=== PATIENT | female | born 1960 | race Caucasian/White ===

== ENCOUNTER → 2018-02-18 | Outpatient (CLI) | payer OTHER ==
[~2018-02-18] MED LIST: Z.0.ADDERALL 30 MG30 PO; Z.0.AMBIEN10 MG PO; Z.0.CYMBALTA60 MG PO; Z.0.TRAZODONE HCL100 PO
--- NOTE | 2018-02-18 17:36 | Diagnostic Imaging Report ---
EXAMINATION: Right shoulder series. CLINICAL HISTORY: Right shoulder pain., History of rotator cuff tear COMPARISON: Right shoulder MRI 10/03/2007. Discussion: The osseous structures are intact without evidence of acute, displaced fracture or dislocation. Well-circumscribed 1.5 cm lucent lesion in the proximal humeral diaphysis, with thin sclerotic border, no cortical disruption or mass effect. No sclerotic lesions. Clopton screws are noted in the right humeral head. No AC separation. Mild degenerative changes in the glenohumeral joint. The soft tissues are unremarkable. IMPRESSION: 1. No acute abnormalities. 2. Clopton screws in the right humeral head, likely from prior rotator cuff repair. 3. Mild degenerative changes in the glenohumeral joint. 4. 1.5 cm lucent lesion in the proximal humeral diaphysis has a nonaggressive appearance, and may represent a bone cyst. Signed by: Dr. Emilio Bullard M.D. on 02/18/2018 5:33 PM
== END ==
LOC: RAD 16:28
PROVIDERS: ATTEND Internal Medicine
DX: M25.511 Pain in right shoulder (principal)

== ENCOUNTER 2018-11-15 09:44 | Observation (INO) | payer BC, OTHER ==
[~2018-11-15] VITALS: Ht 160 cm; Wt 91.3 kg
[2018-11-15] MEDS ORDERED: ASPIRIN 81 MG CHEW TAB PO ONE (10:15)
[2018-11-15 10:25] LABS: BASOPHILS % 0.4 % (0.0-1.0); EOSINOPHILS # (AUTO) 0.3 (0.0-0.4); EOSINOPHILS % 4.6 % (0.0-6.0); HEMOGLOBIN 13.9 g/dL (12.0-16.0); LYMPHOCYTES % 44.2 % (18.0-39.1); MEAN CORPUSCULAR HEMOGLOBIN 27.4 pg (28-32); MEAN CORPUSCULAR HGB CONC 31.6 g/dL (31-35); MEAN CORPUSCULAR VOLUME 86.8 fL (81-99); MONOCYTES # (AUTO) 0.4 (0.2-0.8); MONOCYTES % 5.9 % (4.4-11.3); NEUTROPHILS % 44.3 % (38.7-80.0); PLATELET COUNT 315 x10e3/uL (140-360); RED BLOOD COUNT 5.07 x10e6/uL (3.6-5.1); RED CELL DISTRIBUTION WIDTH 13.4 % (11.7-14.4)
[2018-11-15 10:41] LABS: INR 0.92; PROTHROMBIN TIME 12.8 seconds (11.9-14.5)
[2018-11-15 10:50] LABS: ALBUMIN 3.1 g/dL (3.5-5.0); ALBUMIN/GLOBULIN RATIO 0.9 (0.8-2.0); ANION GAP 12.6 mmol/L (8-16); CALCIUM 9.3 mg/dL (8.4-10.2); CREATININE, SERUM 1.06 mg/dL (0.57-1.11); POTASSIUM 3.6 mmol/L (3.5-5.1)
[2018-11-15 10:56] LABS: CREATINE KINASE MB 1.4 ng/mL (0-5.0)
[2018-11-15 11:13] LABS: BILIRUBIN,URINE NEGATIVE (NEGATIVE); CLARITY,URINE CLEAR (CLEAR); COLOR,URINE YELLOW (YELLOW); KETONES,URINE NEGATIVE (NEGATIVE); NITRITE,URINE NEGATIVE (NEGATIVE); PROTEIN,URINE DIPSTICK NEGATIVE (NEGATIVE); URINE UROBILINOGEN 0.2 mg/dL (0.2 - 1)
[2018-11-15 11:17] LABS: LEUKOCYTE ESTERASE ,URINE 1+ (NEGATIVE)
[2018-11-15 11:33] LABS: BACTERIA,URINE MANY /HPF; EPITHELIAL CELLS,URINE MANY /LPF; RBC,URINE 0-5 /HPF (0-5); WBC,URINE (MAN) >50 /HPF (0-5)
[2018-11-15 11:39] LABS: PARTIAL THROMBOPLASTIN TIME 31.3 seconds (23.8-35.5)
--- NOTE | 2018-11-15 12:45 | NUR ---
PT APPROACHES NURSES STATION ASKING HOW MUCH LONGER BEFORE THE DR CAN SEE HIS (THE PT) NURSE EXPLAINED TO THAT DR IS WORKING CODES THROUGHOUT THE HOSP AND THAT HIS IS CURRENTLY STABLE WITH STABLE VITALS AND LABS; STATES HIS HAS BEEN WAITING AND HE DOESN'T UNDERSTAND WHY A DR HASN'T SEEN HIS AND NURSE AGAIN EXPLAINS TO THAT DR IS WORKING CODES TRYING TO SAVE LIVES AND IT IS NECESSARY TO PRIORITIZE PT'S IN ORDER OF ACUITY WANTS A TIMEFRAME FOR WHEN THE DR WILL SEE HIS AND NURSE EXPLAINS THAT THE DR WILL BE AVAILABLE WHEN HE IS DONE WORKING THE CODE PT BECOMES IRATE AND STATES THAT HE MAY WANT TO CHECK OUT CHARGE NURSE IS NOTIFIED THAT PT MAY WANT TO SIGN OUT AMA AND GOES TO SPEAK TO PT AND ; AGAIN RESTATES HE DOESN'T UNDERSTAND WHY THE DR CAN'T JUST SEE HIS AND CHARGE NURSE EXPLAINS THE DR IS WORKING A CODE WHICH TAKES PRIORITY; PT STATES SHE WANTS TO SEE THE DR AND THAT HER PCP TOLD HER TO COME TO ER FOR FLUIDS SO SHE DOESN'T UNDERSTAND WHY NURSES CAN'T JUST GIVE HER FLUIDS CHARGE NURSE EXPLAINS THAT NURSES DO NOT HAVE PRESCRIPTION AUTHORITY AND MUST WAIT ON DR TO SEE PT AND PUT IN ORDERS AND THAT THE DR IS WORKING A CODE; CONTINUES TO BE ADAMANT THAT A DR SHOULD SEE HIS NOW NURSE EXPLAINS THE SITUATION AGAIN AND ASKS IF THEY ARE WILLING TO WAIT ON DR AND THAT THERE IS NO TIMEFRAME FOR WHEN HE WILL BE AVAILABLE PT STATES SHE WILL WAIT FOR DR IS IRATE AND AGITATED; SECURITY WAS STANDING BY; AT 1259 AT PT BEDSIDE
[2018-11-15] MEDS ORDERED: SODIUM CHLORIDE 0.9% 1000ML 1,000 ML IV SCH (13:15)
[2018-11-15] MEDS: DIAZEPAM 5 MG TAB PO SCH (13:19)
[2018-11-15] MEDS ORDERED: SODIUM CHLORIDE 0.9% 1000ML 1,000 ML ONE (13:21)
--- NOTE | 2018-11-15 13:45 | Diagnostic Imaging Report ---
EXAMINATION: Head CT HISTORY: Dizziness, headache for the last few days COMPARISON: None available TECHNIQUE: Multidetector axial images were obtained without contrast from the foramen magnum to the vertex . The images were reconstructed using brain and bone algorithms. Thin section brain images were reformatted into coronal and sagittal planes. Image quality: Motion/streaking artifact limits the evaluation of the skull base and posterior cranial fossa. Dose modulation, iterative reconstruction, and/or weight based adjustment of the mA/kV was utilized to reduce the radiation dose to as low as reasonably achievable. FINDINGS: Parenchyma: 1. A few scattered matter hypodensities, most likely nonspecific mild chronic microvascular ischemic changes. Otherwise there are no areas of abnormal density in the brain parenchyma. 2. No mass or hemorrhage. No CT evidence of acute territorial vascular insult. Extra-axial spaces:No abnormal density. No extra-axial fluid collections Brain volume: Normal for age. Ventricles: No hydrocephalus or displacement. Arteries: No density suggestive of thrombus. Dural sinuses: No abnormal density. Extra-axial spaces: No abnormal density. Foramen magnum: No mass, Chiari malformation, or basilar invagination. Sella: No obvious mass. Paranasal/mastoid sinuses: Imaged portions unremarkable. Skull/Scalp: No lytic or blastic lesions. No fractures. IMPRESSION: No acute intracranial abnormalities. Minimal likely age-related nonspecific white matter chronic microvascular changes. Signed by: Dr. Luzma Velásquez M.D. on 11/15/2018 1:42 PM
[2018-11-15] MEDS ORDERED: CEFTRIAXONE SOD 1 GM/NS 50 ML 50 ML IV ONE (14:00)
[2018-11-15] MEDS ORDERED: MECLIZINE HCL 12.5 MG TAB PO ONE (14:30)
[2018-11-15] MEDS ORDERED: SODIUM CHLORIDE 0.9% 500ML 500 ML IV ONE (14:30)
[2018-11-15] MEDS ORDERED: METOCLOPRAMIDE HCL 10 MG/2ML VIAL IV ONE (15:00)
[2018-11-15] MEDS ORDERED: DIPHENHYDRAMINE HCL INJ 50 MG/ML VIAL IV ONE (15:00)
--- NOTE | 2018-11-15 15:13 | NUR ---
pt resting comfortably in bed not in distress at this time makes no complaints at this time
[2018-11-15] MEDS ORDERED: ONDANSETRON HCL INJ 2MG/ML 2ML 2 MG/ML VIAL IV PRN (17:15)
--- NOTE | 2018-11-15 18:00 | NUR ---
Recvd patient from ER, Assisted her to bed, unsteady walking, not in any distress or SOB, c/o pain on left arm. call light in reach, bed alarm ON, new orders recvd from Dr Schmitt for pain
[2018-11-15 18:09] VITALS: BP 121/67
[2018-11-15] MEDS ORDERED: HYDROCODONE/APAP 10MG-325MG TAB PO PRN (18:45)
[2018-11-15 18:47] VITALS: BP 121/67
[2018-11-15 20:00] VITALS: BP 103/54
[2018-11-15] MEDS: ZOLPIDEM TARTRATE 10 MG TAB PO PRN (21:06)
[2018-11-15] MEDS: MECLIZINE HCL 12.5 MG TAB PO SCH (21:06)
[2018-11-15] MEDS: HYDROCODONE/APAP 10MG-325MG TAB PO PRN (21:28)
[2018-11-15] MEDS: SODIUM CHLORIDE 0.9% 1000ML 1,000 ML IV SCH (21:32)
[2018-11-16] VITALS (7 sets, daily range): BP systolic 95–114; BP diastolic 53–69
--- NOTE | 2018-11-16 01:00 | NUR ---
received report for continuity of care. patient resting, no s/s of distress observed. will continue to monitor patient. bed locked and in lowest position,call light within easy reach.
[2018-11-16] MEDS: SODIUM CHLORIDE 0.9% 1000ML 1,000 ML IV SCH ×4 (01:08→21:30)
[2018-11-16] MEDS: MECLIZINE HCL 12.5 MG TAB PO SCH ×3 (05:56→21:30)
[2018-11-16] MEDS: CEFTRIAXONE SOD 1 GM/NS 50 ML 50 ML IV SCH (08:20)
[2018-11-16] MEDS: DULOXETINE HCL 30 MG DELAYED RELEASE PO SCH (08:22)
--- NOTE | 2018-11-16 08:38 | History and Physical ---
REASON FOR ADMISSION: Vertigo. HISTORY OF PRESENT ILLNESS: The patient is a 58-year-old lady, who had a 2-day acute onset of vertigo appeared to be a ouuv-eo-fauls sensation, has been so severe that the patient has not been able to eat or drink very well. Found to have an increased risk of falls, then brought to the emergency room and still unsteady. Thus, she has been admitted for further evaluation. PAST MEDICAL HISTORY: Anxiety, recent fall, recent left wrist fracture. MEDICATIONS: See MAR. ALLERGIES: CODEINE. SOCIAL HISTORY: Lives at home with her . Nonsmoker, nondrinker. FAMILY HISTORY: Hypertension, diabetes. PHYSICAL EXAMINATION: VITAL SIGNS: Temperature 96.7, pulse 58, blood pressure 114/67, and sats 97% on room air. GENERAL: No apparent distress. NECK: Supple. No lymphadenopathy. HEENT: Pupils equal, round, and reactive to light and accommodation, but there is noted nystagmus to the right. CARDIOVASCULAR: Regular rate and rhythm. ABDOMEN: Good bowel sounds. Soft, nontender. LUNGS: Clear to auscultation. EXTREMITIES: No clubbing or cyanosis. NEUROLOGIC: Moves all extremities x4. ASSESSMENT AND PLAN: 1. Severe benign positional vertigo. We will continue with current care since she is feeling little bit better. 2. Dehydration. Continue with IV fluids. 3. Anxiety disorder. Continue with home medication. 4. Urinary tract infection. Continue with antibiotics until culture data is available. Please see hospital chart for full details. MD TEJA Jenkins/STEVEN /[id number]
[2018-11-16] MEDS: HYDROCODONE/APAP 10MG-325MG TAB PO PRN ×2 (08:50→18:19)
[2018-11-16] MEDS ORDERED: METHYLPREDNISOLONE SOD SUCC 40 MG/ML VIAL 1ML IV ONE (09:30)
--- NOTE | 2018-11-16 19:04 | NUR ---
received report from day nurse. patient is resting comfortably in bed. bed is in lowest position and call bartholomew is within reach. will continue to monitor patient's care.
[2018-11-16] MEDS: ZOLPIDEM TARTRATE 10 MG TAB PO PRN (22:24)
[2018-11-17] VITALS: BP 101/61
[2018-11-17 04:00] VITALS: BP 117/61
[2018-11-17] MEDS: MECLIZINE HCL 12.5 MG TAB PO SCH (05:38)
[2018-11-17] MEDS: SODIUM CHLORIDE 0.9% 1000ML 1,000 ML IV SCH (05:38)
[2018-11-17] MEDS ORDERED: METHYLPREDNISOLONE SOD SUCC 40 MG/ML VIAL 1ML IV ONE (07:00)
--- NOTE | 2018-11-17 07:00 | NUR ---
report given to day nurse. patient is resting in bed. bed is in lowest position and call bartholomew is within reach.
[2018-11-17 07:40] VITALS: BP 127/69
--- NOTE | 2018-11-17 08:15 | NUR ---
RN RECEIVED REPORT FROM NIGHT NURSE. PT LYING IN BED COMFORTABLY, STATES SHE IS FEELING 100% BETTER THAN WHEN SHE WAS ADMITTED. STATES SHE IS AWAITING HER "INJECTION AND ANOTHER ROUND OF ANTIBIOTICS", FOR THE DR TO DISCHARGE HER. PT HAS NO COMPLAINTS OF PAIN. BED IN LOWEST POSITION, ROOM FREE OF CLUTTER, BED IN LOWEST POSITION AND CALL LIGHT WITHIN REACH. PT'S IV IS PATENT, AND NS IS FLOWING AT 125 ML/HR. PT SHOWS NO S/S OF DISTRESS
[2018-11-17] MEDS: CEFTRIAXONE SOD 1 GM/NS 50 ML 50 ML IV SCH (08:52)
[2018-11-17] MEDS: DULOXETINE HCL 30 MG DELAYED RELEASE PO SCH (08:53)
[2018-11-17] MEDS: DIAZEPAM 5 MG TAB PO SCH (08:53)
[2018-11-17 09:50] VITALS: BP 127/69
--- NOTE | 2018-11-17 10:27 | NUR ---
DR. DIETRICH PAGED: REGARDING POSSIBLE Rx AND DISCHARGE FOR THE PT
--- NOTE | 2018-11-17 11:00 | NUR ---
PT NOTIFIED OF DISCHARGE ORDER. PIV DISCONTINUED, DISCHARGE INFORMATION SIGNED, PT EDUCATED ON FALL PREVENTION AND URINARY TRACT INFECTION(WOMEN). PT IS ASYMPTOMATIC AND DENIES PAIN, DIZZINESS OR ANY DISCOMFORT. PT IS CALLING HER TO COME PICK HER UP
[2018-11-17 11:23] VITALS: BP 134/61
--- NOTE | 2018-11-18 05:37 | Discharge Summary ---
DISCHARGE DIAGNOSES: 1. Benign positional vertigo. 2. Dehydration. HISTORY OF PRESENT ILLNESS: The patient is a 58-year-old lady who presented with acute onset of two days prior with vertigo that was so severe that she was having difficulty ambulating as well as decreasing p.o. intake in due to nausea and vomiting, so she was brought and placed on IV fluids for dehydration as well as meclizine and some Solu-Medrol where she had significant improvement on the following day. Thus, she was able to ambulate well and eat well without any issues and at her insistence, she wanted to be discharged home as she was feeling much better, so she was discharged home and told to follow up with me in 1-2 weeks. Please see hospital chart for full details. MD TEJA Jenkins/STEVEN /[id number]
== END 2018-11-17 11:10 | disposition home or self-care (01) ==
LOC: ER 09:44 → ERHOLD 17:05 → IMCU 17:54
PROVIDERS: ADMIT Internal Medicine; ATTEND Internal Medicine
DX: H81.10 Benign paroxysmal vertigo, unspecified ear (principal); F41.9 Anxiety disorder, unspecified; F32.9 Major depressive disorder, single episode, unspecified; N30.00 Acute cystitis without hematuria; Z98.890 Other specified postprocedural states; E86.0 Dehydration; R11.2 Nausea with vomiting, unspecified
CPT/HCPCS: 36415; 70450; 80053; 81001; 82550; 82553; 84484; 85025; 85610; 85730; 87086; 93005; 99284; G0378 ×3; J0696 ×3; J1200; J2765; J2920 ×2; J7030 ×3; J7040; J8597 ×3

== ENCOUNTER → 2019-03-26 | Day surgery (SDC) | payer BC ==
[~2019-03-26] MED LIST changes: +ACYCLOVIR200 MG PO; +DICYCLOMINE HCL10 MG PO; +ESTRADIOL1 MG PO; +EVOXAC30 MG PO; +FENTANYL CITRATE/PF 100MCG/2 ML INJ ONE; +HYOSCYAMINE 0.125 MG TAB ONE; +MELOXICAM7.5 MG PO; +MIDAZOLAM HCL 2 MG/2 ML VIAL ONE; +PANTOPRAZOLE SO40 MG PO; +PHENTERMINE H37.5 MG PO; +PROPOFOL IV EMULSION 10 MG/ML 50 ML VIAL ONE; +TYLENOL WITH C1 EACH PO
--- OUTSIDE RECORDS SUMMARY | 2019-03-26 10:55 | XMS REPORT ---
Author Author [facility] Address Unknown Phone Unavailable Care Team Providers Care Vp Mobile Products Name Role Phone Osmin MONTENEGRO Unavailable Unavailable FRANCISCO J DIETRICH Unavailable Unavailable Payers Payer Name Policy Type Policy Number Effective Date Expiration Date Problems This patient has no known problems. Allergies, Adverse Reactions, Alerts Allergy Name Allergy Type Status Severity Reaction(s) Onset Date Inactive Date Treating Clinician Comments codeine DA Active MO 2018-10-16 00:00:00 codeine DA Active MO 2015-01-24 00:00:00 Medications This patient has no known medications. Results Test Description Test Time Test Comments Text Results Atomic Results Result Comments CT BRAIN WO 2018-11-15 13:31:00 [place] [address] Patient Name: LUZ MARIA MUJICA MR #: [id number] : 1960 Age/Sex: 58/F Req #: [id number] Adm Physician: Ordered by: LIZ SUBRAMANIAN INBOUND SALES REPRESENTATIVE Report #: [id number] Location: ER Room/Bed: Procedure: [id number] CT/CT BRAIN WO Exam Date: 11/15/18 Exam Time: 1300 REPORT STATUS: Signed EXAMINATION: Head CT HISTORY: Dizziness, headache for t he last few days COMPARISON: None available TECHNIQUE: Multidetector axial images were obtained without contrast from the foramen magnum to the vertex . The images were reconstructed using brain and bone algorithms. Thin section brain images were reformatted into coronal and sagittal planes. Image quality: Motion/streaking artifact limits the evaluation of the skull base and posterior cranial fossa. Dose modulation, iterative reconstruction, and/or weight based adjustment of the mA/kV was utilized to reduce the radiation dose to as low as reasonably achievable. FINDINGS: Parenchyma: 1. A few scattered matter hypodensities, most likely nonspecific mild chronic microvascular ischemic changes. Otherwise there are no areas of abnormal density in the brain parenchyma. 2. No mass or hemorrhage. No CT evidence of acute territorial vascular insult. Extra-axial spaces:No abnormal density. No extra-axial fluid collections Brain volume: Normal for age. Ventricles: No hydrocephalus or displacement. Arteries: No density suggestive of thrombus. Dural sinuses: No abnormal density. Extra-axial spaces: No abnormal density. Foramen magnum: No mass, Chiari malformation, or basilar invagination. Sella: No obvious mass. Paranasal/mastoid sinuses: Imaged portions unremarkable. Skull/Scalp: No lytic or blastic lesions. No fractures. IMPRESSION: No acute intracranial abnormalities. Minimal likely age- related nonspecific white matter chronic microvascular changes. Signed by: Dr. Ai Velásquez M.D. on 11/15/2018 1:42 PM Dictated By: AI VELÁSQUEZ MD 1342 Transcribed By: GAY on 11/15/18 1342 COPY TO: LIZ SUBRAMANIAN NP - XR WRIST 3 + V LT 2018-10-09 13:05:00 FAX: Nani Rivera NP [phone] [place]: St: [facility] FAX: Francisco J Pepper MD [phone] Name: LUZ MARIA MUJICA [facility] Noe Meneses : 1960 Age/S: 58/F [address] [place] [address] Unit #: [id number] Loc: [place] [address] Phys: Nani Rivera NP Acct: [id number] Dis Date: Status: REG ER PHONE #: [phone] Exam Date: 10/09/2018 1256 FAX #: [phone] Reason: post reduction EXAMS: CPT CODE: [id number] XR WRIST 3 + V LT 00097 Left wrist 3 views 10/09/2018 1235 hours HISTORY: Post reduction Comparison is made to 10/09/2018 1050 hours FINDINGS: Interval cast placement is noted. There is improved anatomic alignment of the distal left radial and ulnar fractures from prior study with decreased volar angulation of the fracture fragments. IMPRESSION: Improved anatomic alignment of distal left radial and ulnar fractures. SL: [id number] at 1300 Reported and signed by: Nitish Garner M.D. CC: Nani Rivera NP; Francisco J Dietrich MD Technologist: RT Citlaly(Freddy) Trnscrd Date/Time/By: 10/09/2018 (8603) : By: [email or web address] Orig Print D/T: S: 10/09/2018 (4847) PAGE 1 Signed Report - XR HAND 3 + V LT 2018-10-09 11:06:00 FAX: Herbert Belcher MD [phone] [place]: St: REG FAX: Nani Rivera NP [phone] Name: LUZ MARIA MUJICA : 1960 Age/S: 58/F [address] [place] [address] Unit #: [id number] Loc: [place] [address] Phys: Nani Rivera NP Acct: [id number] Dis Date: Status: REG ER PHONE #: [phone] Exam Date: 10/09/2018 1058 FAX #: [phone] Reason: Deformity to L wrist after FOOSH EXAMS: CPT CODE: [id number] XR HAND 3 + V LT [address] Study: - XR WRIST 3 + V LT, - XR FOREARM 2 VIEWS LT, - XR HAND 3 + V LT 10/09/2018 10:19 AM Patient Name: LUZ MARIA MUJICA MR: [id number] : 1960; Age: 58 years y/o Female Ordering Physician: Nani Rivera NP Clinical Indication: Deformity to L wrist after FOOSH Comparison: None Left hand, 3 views Left wrist, 3 views Left forearm, 2 views: Comminuted fracture of the distal radius with dorsal displacement and angulation. Dorsally displaced distal ulnar fracture. Well-corticated nonspecific bone fragment at the dorsal aspect of the scaphoid. Soft tissue swelling about the wrist. IMPRESSION: 1. Displaced, dorsally angulated distal radial fracture. 2. Dorsally displaced ulnar styloid fracture. SL: [id number] at 1106 Reported and signed by: Rashid Hodges M.D. CC: Herbert Montero MD; Nani Rivera NP Technologist: Kassidy Esteban RT(R) Trnscrd Date/Time/By: 10/09/2018 (5336) : By: [email or web address] Orig Print D/T: S: 10/09/2018 (8382) PAGE 1 Signed Report - XR FOREARM 2 VIEWS LT 2018-10-09 11:06:00 FAX: Herbert Belcher MD [phone] [place]: St: REG FAX: Nani Rivera NP [phone] Name: [facility] 1960 Age/S: 58/F [address] [place] [address] Unit #: [id number] Loc: [place] [address] Phys: Nani Rivera NP Acct: [id number] Dis Date: Status: REG ER PHONE #: [phone] Exam Date: 10/09/2018 1058 FAX #: [phone] Reason: Deformity to L wrist after FOOSH EXAMS: CPT CODE: [id number] XR [place] [address] [place] [address] Study: - XR WRIST 3 + V LT, - XR FOREARM 2 VIEWS LT, - XR HAND 3 + V LT 10/09/2018 10:19 AM Patient Name: LUZ MARIA MUJICA MR: [id number] : 1960; Age: 58 years y/o Female Ordering Physician: Nani Rivera NP Clinical Indication: Deformity to L wrist after FOOSH Comparison: None Left hand, 3 views Left wrist, 3 views Left forearm, 2 views: Comminuted fracture of the distal radius with dorsal displacement and angulation. Dorsally displaced distal ulnar fracture. Well-corticated nonspecific bone fragment at the dorsal aspect of the scaphoid. Soft tissue swelling about the wrist. IMPRESSION: 1. Displaced, dorsally angulated distal radial fracture. 2. Dorsally displaced ulnar styloid fracture. SL: [id number] at 1106 Reported and signed by: Rashid Hodges M.D. CC: Herbert Montero MD; Nani Rivera NP Technologist: RT Citlaly(R) Trnscrd Date/Time/By: 10/09/2018 (8913) : By: [email or web address] Orig Print D/T: S: 10/09/2018 (5056) PAGE 1 Signed Report - XR WRIST 3 + V LT 2018-10-09 11:06:00 FAX: Herbert Belcher MD [phone] [place]: St: [facility] FAX: Nani Rivera NP [phone] Name: LUZ MARIA MUJICA [facility] : 1960 Age/S: 58/F [address] [place] [address] Unit #: [id number] Loc: [place] [address] Phys: Nani Rivera NP Acct: [id number] Dis Date: Status: REG ER PHONE #: [phone] Exam Date: 10/09/2018 1058 FAX #: [phone] Reason: Deformity to L wrist after FOOSH EXAMS: CPT CODE: [id number] XR WRIST 3 + [place] LT [address] Study: - XR WRIST 3 + V LT, - XR FOREARM 2 VIEWS LT, - XR HAND 3 + V LT 10/09/2018 10:19 AM Patient Name: LUZ MARIA MUIJCA MR: [id number] : 1960; Age: 58 years y/o Female Ordering Physician: Nani Rivera NP Clinical Indication: Deformity to L wrist after FOOSH Comparison: None Left hand, 3 views Left wrist, 3 views Left forearm, 2 views: Comminuted fracture of the distal radius with dorsal displacement and angulation. Dorsally displaced distal ulnar fracture. Well-corticated nonspecific bone fragment at the dorsal aspect of the scaphoid. Soft tissue swelling about the wrist. IMPRESSION: 1. Displaced, dorsally angulated distal radial fracture. 2. Dorsally displaced ulnar styloid fracture. SL: [id number] at 1106 Reported and signed by: Rashid Hodges M.D. CC: Herbert Montero MD; Nani Rivera NP Technologist: Kassidy Esteban RTCecile) Trnscrd Date/Time/By: 10/09/2018 (4212) : By: [email or web address] Orig Print D/T: S: 10/09/2018 (7951) PAGE 1 Signed Report SHOULDER RIGHT COMPLETE 2018-02-18 17:29:00 [place] [address] Patient Name: LUZ MARIA MUJICA MR #: [id number] : 1960 Age/Sex: 57/F Req #: [id number] Adm Physician: Ordered by: FRANCISCO J DIETRICH MD Report #: [id number] Location: [facility] Room/Bed: Procedure: [id number] DX/SHOULDER RIGHT COMPLETE Exam Date: 02/18/18 Exam Time: 1700 REPORT STATUS: Signed EXAMINATION: Right shoulder series. CLINICAL HISTORY: Right shoulder pain., History of rotator cuff tear COMPARISON: Right shoulder MRI 10/03/2007. Discussion: The osseous structures are intact without evidence of acute, displaced fracture or dislocation. Well-circumscribed 1.5 cm lucent lesion in the proximal humeral diaphysis, with thin sclerotic border, no cortical disruption or mass effect. No sclerotic lesions. Hull screws are noted in the right humeral head. No AC separation. Mild degenerative changes in the glenohumeral joint. The soft tissues are unremarkable. IMPRESSION: 1. No acute abnormalities. 2. Hull screws in the right humeral head, likely from prior rotator cuff repair. 3. Mild degenerative changes in the glenohumeral joint. 4. 1.5 cm lucent lesion in the proximal humeral diaphysis has a nonaggressive appearance, and may represent a bone cyst. Signed by: Dr. Emilio Ruiz M.D. on 02/18/2018 5:33 PM Dictated By: EMILIO RUIZ MD 173 Transcribed By: GAY on 02/18/181732 COPY TO: FRANCISCO J DIETRICH MD
[2019-03-26 15:05] VITALS: BP 96/78
--- NOTE | 2019-03-26 18:32 | Operative Report ---
DATE OF PROCEDURE: 03/26/2019 SURGEON: Caleb Hernandez MD PROCEDURE: Colonoscopy with polypectomy and biopsies. INDICATIONS FOR COLONOSCOPY: Colorectal cancer screening. MEDICATIONS: The patient was done under MAC, please see anesthesiologist's note. PROCEDURE IN DETAIL: With the patient in left lateral decubitus position, a flexible fiberoptic Olympus colonoscope was inserted into the rectum with ease and advanced all the way to the cecum. A minute polyp was noted in the cecum that was removed per the cold biopsy forceps. The ascending and the transverse colon appeared to be within normal limits. The descending and the proximal two-thirds of the sigmoid colon were somewhat ahaustral and random biopsies were obtained. The distal sigmoid and the rectum appeared to be within normal limits. The scope was then retroflexed into the distal rectum and small internal hemorrhoids were noted, none of which was actively bleeding. The scope was then straightened out, it was subsequently withdrawn, and the patient tolerated procedure well. IMPRESSION: 1. Cecal polyp removed per cold biopsy forceps. 2. Mild patchy left-sided colitis. 3. Internal hemorrhoids, none actively bleeding. PLAN: Follow up histology. Initiate high-fiber, low-fat diet. Initiate high-fiber supplement. The patient might benefit from a followup colonoscopy in 5 years. Caleb Hernandez MD [facility] [place]/NONAL /[id number] cc: Francisco J Schmitt MD
== END | disposition home or self-care (01) ==
LOC: OR 10:52
PROVIDERS: ATTEND Internal Medicine Gastroenterology
DX: R12 Heartburn (principal); D12.0 Benign neoplasm of cecum; K21.9 Gastro-esophageal reflux disease without esophagitis; F32.9 Major depressive disorder, single episode, unspecified; Z68.29 Body mass index [BMI] 29.0-29.9, adult; K63.5 Polyp of colon; K51.50 Left sided colitis without complications; K64.8 Other hemorrhoids; Z88.5 Allergy status to narcotic agent; Z01.810 Encounter for preprocedural cardiovascular examination
CPT/HCPCS: 45380; 93005; J2250; J2704; J3010; 45378

== ENCOUNTER → 2020-01-20 | Day surgery (SDC) | payer BC, OTHER ==
[~2020-01-20] MED LIST changes: +ETOMIDATE 2 MG/ML 10 ML INJ IV ONE; -FENTANYL CITRATE/PF 100MCG/2 ML INJ ONE; -HYOSCYAMINE 0.125 MG TAB ONE; +LIDOCAINE HCL 2% LOCAL INJ 5 ML SDV VIAL INJ ONE; +METOCLOPRAMIDE HCL 10 MG/2ML VIAL ONE; -MIDAZOLAM HCL 2 MG/2 ML VIAL ONE; +ONDANSETRON HCL INJ 2MG/ML 2ML 2 MG/ML VIAL ONE; +PANTOPRAZOLE 40 MG 10ML VIAL ONE; +PROPOFOL IV EMULSION 10 MG/ML 20 ML VIAL ONE; -PROPOFOL IV EMULSION 10 MG/ML 50 ML VIAL ONE
[2020-01-20 10:05] VITALS: BP 110/64
--- NOTE | 2020-01-20 11:18 | Operative Report ---
DATE OF PROCEDURE: 01/20/2020 SURGEON: Caleb Hernandez MD PROCEDURE: An EGD with esophageal dilatation and biopsies. INDICATIONS FOR EGD: Dysphagia, heartburn, and indigestion. MEDICATIONS: The patient was done under MAC, please see anesthesiologist's note. PROCEDURE IN DETAIL: With the patient in left lateral decubitus position, a flexible fiberoptic Olympus gastroscope was introduced into the esophagus under direct visualization without any difficulty. There was a minute nodule was noted and esophagus appeared to be within normal limits. The scope was then advanced with ease into the stomach and the patient is status post Keli-en-Y. There was a minute nodule noted in the gastric cuff that was biopsied. The anastomosis appeared to be intact and patent. The scope was subsequently withdrawn. Esophagus was then dilated to size 54-Scottish Addison. The patient tolerated procedure well. IMPRESSION: 1. Esophageal stricture dilated to size 54-Scottish Addison. 2. Status post Keli-en-Y anastomosis intact. 3. Minute nodule, gastric cuff, biopsied. PLAN: Follow up histology. Continue Protonix 40 mg one p.o. a.c. b.i.d. Caleb Hernandez MD [facility] /[id number] cc: Francisco J Schmitt MD
== END | disposition home or self-care (01) ==
LOC: ENDO 07:21
PROVIDERS: ATTEND Internal Medicine Gastroenterology
DX: K22.2 Esophageal obstruction (principal); K29.50 Unspecified chronic gastritis without bleeding; K21.9 Gastro-esophageal reflux disease without esophagitis; Z98.84 Bariatric surgery status; M48.00 Spinal stenosis, site unspecified; R00.1 Bradycardia, unspecified; Z68.26 Body mass index [BMI] 26.0-26.9, adult; Z86.010 Personal history of colon polyps
CPT/HCPCS: 43239; 43450; 93005; C9113; J2001; J2405; J2704; J2765; U0002

== ENCOUNTER → 2020-01-27 | Outpatient (CLI) | payer BC ==
[~2020-01-27] MED LIST changes: -ETOMIDATE 2 MG/ML 10 ML INJ IV ONE; +IOPAMIDOL 370 MG/ML 200 ML INFUS..BTL INJ ONE; -LIDOCAINE HCL 2% LOCAL INJ 5 ML SDV VIAL INJ ONE; -METOCLOPRAMIDE HCL 10 MG/2ML VIAL ONE; -ONDANSETRON HCL INJ 2MG/ML 2ML 2 MG/ML VIAL ONE; -PANTOPRAZOLE 40 MG 10ML VIAL ONE; -PROPOFOL IV EMULSION 10 MG/ML 20 ML VIAL ONE; +SODIUM CHLORIDE 0.9% 50ML 50 ML ONE
--- NOTE | 2020-01-27 16:20 | Diagnostic Imaging Report ---
EXAM: CT Chest WITH intravenous contrast 01/27/2020 2:50 PM INDICATION: Dysphagia, vomiting COMPARISON: None TECHNIQUE: Chest was scanned utilizing a multidetector helical scanner from the lung apex through the level of the adrenal glands after administration of IV contrast. Coronal and sagittal reformations were obtained. Routine protocol was performed. IV CONTRAST: 100mL Isovue 370 RADIATION DOSE: Total DLP: 849 mGy*cm. (Inclusive of separately reported Neck CT images) Dose modulation, iterative reconstruction, and/or weight based adjustment of the mA/kV was utilized to reduce the radiation dose to as low as reasonably achievable. COMPLICATIONS: None FINDINGS: For findings of the neck soft tissues, please refer to the concurrently performed and reported CT soft tissue neck. LINES/ TUBES: None. LUNGS AND AIRWAYS: The central airways are patent. No focal consolidation or pulmonary edema. Mild lower lobe dependent subsegmental atelectasis. PLEURA: The pleural spaces are clear. HEART AND MEDIASTINUM: The thyroid gland is normal. No supraclavicular, axillary, mediastinal, or hilar lymphadenopathy. The heart is not enlarged. No pericardial effusion. No central pulmonary embolism. UPPER ABDOMEN: Status post cholecystectomy. Postoperative findings of gastric surgery. No acute findings in the upper abdomen. BONES: No acute osseous injury. No suspicious lytic or blastic lesions. Mild multilevel degenerative changes. SOFT TISSUES: Unremarkable. IMPRESSION: No acute intrathoracic abnormality. Postoperative findings of gastric bypass. Signed by: Pedrito Gill MD on 01/27/2020 4:17 PM
--- NOTE | 2020-01-27 16:49 | Diagnostic Imaging Report ---
EXAMINATION: CT of the neck with contrast HISTORY: 59-year-old female with dysphagia and vomiting COMPARISON: None TECHNIQUE: Multidetector helical axial images were obtained from the sternal notch through the skull base during intravenous infusion of iodinated contrast material. Intravenous contrast: 100 mL of Isovue-370. Dose modulation, iterative reconstruction, and/or weight based adjustment of the mA/kV was utilized to reduce the radiation dose to as low as reasonably achievable. FINDINGS: Mass: No solid or cystic mass, no fluid collections. Nodes: No lymphadenopathy. Sinuses: Imaged portions unremarkable. Oral cavity: Unremarkable. Salivary glands: Parotid and submandibular glands unremarkable. Pharynx: Unremarkable. Larynx: Unremarkable. Thyroid gland: Unremarkable. Upper esophagus: Unremarkable. Blood vessels: Unremarkable. Bones: Disc osteophyte complex formation at C7-T1 results in mild canal narrowing. IMPRESSION: No neck CT abnormalities, particularly no mass, fluid collections or lymphadenopathy. Signed by: Dr. Luzma Velásquez M.D. on 01/27/2020 4:46 PM
== END ==
LOC: CT 13:46
PROVIDERS: ATTEND Internal Medicine Gastroenterology
DX: R13.19 Other dysphagia (principal); R11.10 Vomiting, unspecified
CPT/HCPCS: 70491; 71260; Q9967

== ENCOUNTER 2021-04-03 09:04 | Emergency (ER) | payer BC ==
[~2021-04-03] VITALS: Ht 160 cm; Wt 91.2 kg
[~2021-04-03 09:04] MED LIST changes: -IOPAMIDOL 370 MG/ML 200 ML INFUS..BTL INJ ONE; -SODIUM CHLORIDE 0.9% 50ML 50 ML ONE
[2021-04-03] MEDS ORDERED: CASIRIVIMAB/IMDEVIMAB 10 ML in SODIUM CHLORIDE 0.9% 100 ML IV ONE (09:15)
== END 2021-04-03 10:36 | disposition home or self-care (01) ==
LOC: ER 09:10
DX: U07.1 COVID-19 (principal); I10 Essential (primary) hypertension; F41.9 Anxiety disorder, unspecified
CPT/HCPCS: 99283; J7050

== ENCOUNTER → 2021-09-09 | Day surgery (SDC) | payer BC ==
[~2021-09-09] MED LIST changes: +AMPHETAMINE SAL15 MG PO; +FENTANYL CITRATE/PF 100MCG/2 ML INJ ONE; +LIDOCAINE HCL 1% 2 ML AMP ONE; +LIDOCAINE HCL 2% LOCAL INJ 5 ML SDV VIAL INJ ONE; +METOCLOPRAMIDE HCL 10 MG/2ML VIAL ONE; +MIDAZOLAM HCL 2 MG/2 ML VIAL ONE; +OMEPRAZOLE40 MG PO; +PROPOFOL IV EMULSION 10 MG/ML 20 ML VIAL ONE; +TIZANIDINE HCL4 M1 PO; +ULTRAM 50MG50 MG PO; +VALACYCLOVIR500 MG PO
== END | disposition home or self-care (01) ==
LOC: ENDO 07:27
PROVIDERS: ATTEND Internal Medicine Gastroenterology
DX: K22.2 Esophageal obstruction (principal); K20.90 Esophagitis, unspecified without bleeding; K30 Functional dyspepsia; K21.9 Gastro-esophageal reflux disease without esophagitis; Z98.84 Bariatric surgery status; Z86.010 Personal history of colon polyps; Z71.3 Dietary counseling and surveillance; M47.816 Spondylosis without myelopathy or radiculopathy, lumbar region; Z88.6 Allergy status to analgesic agent; Z91.048 Other nonmedicinal substance allergy status; Z01.810 Encounter for preprocedural cardiovascular examination; Z01.812 Encounter for preprocedural laboratory examination; Z20.822 Contact with and (suspected) exposure to COVID-19; Z79.899 Other long term (current) drug therapy; Z68.28 Body mass index [BMI] 28.0-28.9, adult
CPT/HCPCS: 43235; 43450; 93005; C9113; J2001 ×2; J2250; J2704; J2765; J3010; U0002

== ENCOUNTER 2022-02-22 08:34 | Observation (INO) | payer BC ==
[2022-02-20 12:09] LABS: BASOPHILS % 0.7 % (0.0-1.0); EOSINOPHILS # (AUTO) 0.3 (0.0-0.4); EOSINOPHILS % 7.5 % (0.0-6.0); HEMATOCRIT 34.7 % (34.2-44.1); LYMPHOCYTES # (AUTO) 1.9 (1.0-3.2); LYMPHOCYTES % 42.3 % (18.0-39.1); MEAN CORPUSCULAR HEMOGLOBIN 27.5 pg (28-32); MEAN CORPUSCULAR HGB CONC 31.7 g/dL (31-35); MEAN CORPUSCULAR VOLUME 86.8 fL (81-99); MONOCYTES # (AUTO) 0.4 (0.2-0.8); MONOCYTES % 9.4 % (4.4-11.3); NEUTROPHILS # (AUTO) 1.8 (2.1-6.9); NEUTROPHILS % 39.9 % (38.7-80.0); PLATELET COUNT 308 x10e3/uL (140-360); RED CELL DISTRIBUTION WIDTH 15.4 % (11.7-14.4)
[2022-02-20 12:23] LABS: INR 0.9; PARTIAL THROMBOPLASTIN TIME 26.8 seconds (23.8-35.5)
[2022-02-20 12:30] LABS: ANION GAP 14.5 mmol/L (8-16); CALCIUM 8.5 mg/dL (8.4-10.2); CREATININE, SERUM 0.96 mg/dL (0.57-1.11); POTASSIUM 3.5 mmol/L (3.5-5.1)
[~2022-02-22] VITALS: Ht 160 cm; Wt 69.9 kg
[~2022-02-22 08:34] MED LIST changes: -FENTANYL CITRATE/PF 100MCG/2 ML INJ ONE; -LIDOCAINE HCL 1% 2 ML AMP ONE; -LIDOCAINE HCL 2% LOCAL INJ 5 ML SDV VIAL INJ ONE; -METOCLOPRAMIDE HCL 10 MG/2ML VIAL ONE; -MIDAZOLAM HCL 2 MG/2 ML VIAL ONE; -PROPOFOL IV EMULSION 10 MG/ML 20 ML VIAL ONE; +QUETIAPINE FUMA25 MG PO; +THROMBIN FOR SOLN 5,000 UNIT VIAL ONE; +ULTRACET TABLE1 EACH PO; +Vancomycin IV 1 GM VIAL ONE
[2022-02-22] MEDS ORDERED: HYDROCODON-ACE1 EA12 PO (10:53)
[2022-02-22] MEDS ORDERED: MORPHINE SULFATE 5 MG/ML VIAL IM PRN (11:00)
[2022-02-22] MEDS ORDERED: TRAMADOL HCL 50 MG TAB PO SCH (11:00)
[2022-02-22] MEDS ORDERED: ONDANSETRON HCL INJ 2MG/ML 2ML 2 MG/ML VIAL IV PRN (11:00)
[2022-02-22] MEDS ORDERED: HYDROMORPHONE 2MG/ML 2 MG/ML ML IV PRN (11:00)
[2022-02-22] MEDS ORDERED: ACYCLOVIR 200 MG CAP PO PRN (11:00)
[2022-02-22] MEDS ORDERED: ZOLPIDEM TARTRATE 5 MG TAB PO PRN (11:00)
[2022-02-22] MEDS ORDERED: MAGNESIUM/ALUMINUM/SIMETHICONE 30 ML UDC PO PRN (11:00)
[2022-02-22] MEDS ORDERED: VALACYCLOVIR HCL 500 MG TAB PO PRN (11:00)
[2022-02-22] MEDS ORDERED: OXYCODONE/ACETAMINOPHEN 5-325 1 EACH TABLET PO PRN (11:00)
[2022-02-22] MEDS ORDERED: CARISOPRODOL 350 MG TAB PO PRN (11:00)
[2022-02-22] MEDS ORDERED: ACETAMINOPHEN 325 MG TAB PO PRN (11:00)
[2022-02-22] MEDS ORDERED: PROMETHAZINE HCL (IM) 25 MG/ML VIAL IM PRN (11:00)
[2022-02-22 12:32] VITALS: BP 125/81
[2022-02-22] MEDS: LACTATED RINGER'S 1,000 ML IV SCH ×2 (12:35→21:16)
[2022-02-22 13:28] VITALS: BP 125/81
[2022-02-22 14:07] VITALS: BP 125/81
[2022-02-22] MEDS ORDERED: MIDAZOLAM HCL 2 MG/2 ML VIAL ONE (14:30)
[2022-02-22] MEDS ORDERED: FENTANYL CITRATE/PF 100MCG/2 ML INJ ONE (14:30)
[2022-02-22 14:35] VITALS: BP 125/81
[2022-02-22] MEDS: (Cevimeline Hcl (Evoxac) 30 MG) PO SCH ×2 (14:41→21:17)
[2022-02-22] MEDS: D AMPHET PO SCH (14:50)
[2022-02-22] MEDS: AMPHET ASP PO SCH (14:50)
[2022-02-22] MEDS: AMPHET PO SCH (14:50)
[2022-02-22 16:14] VITALS: BP 127/79
[2022-02-22] MEDS: MELOXICAM 7.5 MG TAB PO SCH (17:19)
[2022-02-22] MEDS: TIZANIDINE HCL 4 MG TAB PO SCH (17:20)
[2022-02-22] MEDS: DICYCLOMINE HCL 10 MG CAP PO SCH (17:20)
[2022-02-22] MEDS ORDERED: ACETAMINOPHEN 1000 MG/100 ML IV ONE (17:42)
[2022-02-22] MEDS ORDERED: SUGAMMADEX SODIUM 200 MG/2 ML VIAL IV ONE (17:42)
[2022-02-22] MEDS ORDERED: DEXAMETHASONE SOD PHOS INJ 4 MG/ML SDV ONE (17:42)
[2022-02-22] MEDS ORDERED: EPHEDRINE SULFATE INJ 50 MG/ML VIAL ONE (17:42)
[2022-02-22] MEDS ORDERED: ONDANSETRON HCL INJ 2MG/ML 2ML 2 MG/ML VIAL ONE (17:42)
[2022-02-22] MEDS ORDERED: IBUPROFEN 800 MG/200 ML BAG IV ONE (17:42)
[2022-02-22] MEDS ORDERED: PROPOFOL IV EMULSION 10 MG/ML 20 ML VIAL ONE (17:42)
[2022-02-22] MEDS ORDERED: POVIDONE IODINE 0.05% 0.05 % ML PO ONE (17:42)
[2022-02-22] MEDS ORDERED: LIDOCAINE HCL (LTA) 4 ML SOLN ONE (17:42)
[2022-02-22] MEDS ORDERED: ROCURONIUM BROMIDE 10 MG/ML 5ML VIAL IV ONE (17:42)
[2022-02-22] MEDS ORDERED: SEVOFLURANE INHAL SOLN 250 ML PEN BTL ONE (17:42)
[2022-02-22 20:00] VITALS: BP 107/67
[2022-02-22] MEDS ORDERED: ZOLPIDEM TARTRATE 10 MG TAB PO SCH (21:00)
[2022-02-23] VITALS: BP 111/69
[2022-02-23 03:29] VITALS: BP 111/69
[2022-02-23 04:00] VITALS: BP 123/72
[2022-02-23] MEDS: LACTATED RINGER'S 1,000 ML IV SCH ×2 (05:04→08:42)
[2022-02-23 07:57] VITALS: BP 122/75
[2022-02-23] MEDS: TIZANIDINE HCL 4 MG TAB PO SCH (08:25)
[2022-02-23] MEDS: MELOXICAM 7.5 MG TAB PO SCH (08:26)
[2022-02-23] MEDS: DICYCLOMINE HCL 10 MG CAP PO SCH (08:27)
[2022-02-23] MEDS: (Cevimeline Hcl (Evoxac) 30 MG) PO SCH (08:27)
[2022-02-23] MEDS: AMPHET PO SCH (08:28)
[2022-02-23] MEDS: D AMPHET PO SCH (08:28)
[2022-02-23] MEDS: AMPHET ASP PO SCH (08:28)
[2022-02-23 09:00] VITALS: BP 122/75
[2022-02-23] MEDS ORDERED: PANTOPRAZOLE SOD 40 MG TABEC PO SCH (09:00)
[2022-02-23] MEDS ORDERED: ESTRADIOL 1 MG TAB PO SCH (09:00)
[2022-02-23] MEDS ORDERED: QUETIAPINE FUMARATE 25 MG TAB PO SCH (09:00)
== END 2022-02-23 10:21 | disposition home or self-care (01) ==
LOC: OR 08:34 → PACU V 10:55 → MED/SURG2 11:41
PROVIDERS: ADMIT Neurological Surgery; ATTEND Neurological Surgery
DX: M50.121 Cervical disc disorder at C4-C5 level with radiculopathy (principal); J45.909 Unspecified asthma, uncomplicated; K21.9 Gastro-esophageal reflux disease without esophagitis; Z20.822 Contact with and (suspected) exposure to COVID-19; Z88.5 Allergy status to narcotic agent; Z01.818 Encounter for other preprocedural examination
CPT/HCPCS: 0223U; 20931; 22551; 22845; 36415; 71046; 72040; 76000; 80048; 85025; 85610; 85730; 86850; 86900; 88304; 88311; 93005; C1713; G0378 ×2; J0131; J0690 ×2; J1100; J1170; J2250; J2405; J2704; J3010; J3370; J7121 ×2; S0164